=== PATIENT | male | born 1965 | race Caucasian/White ===

== ENCOUNTER 2017-02-06 13:59 | Emergency (ER) | payer BC ==
--- NOTE | 2017-03-12 15:38 | ER ---
ADMIT: 02/06/2017 RM/LOC: ER [facility] MR#: [id number] [address] [id number] GENEVIEVE DAWSON [address] [place] [address] Emergency Room Report SEX: M AGE: 51 : 1965 DATE: 02/06/2017 SUBJECTIVE: A 51-year-old male who has been feeling ill the past 4 to 5 days, had a productive cough, fever, chills, and some lightheadedness with activity. He is an otherwise healthy individual. See T-sheet for remainder of history and physical. EMERGENCY ROOM COURSE: CBC was within normal parameters. Electrolytes were significant for glucose of 157. UA was unremarkable. Chest x-ray revealed questionable infiltrate in the left lower lobe. The patient was being treated as pneumonia, given a prescription for levofloxacin. Instructed to follow up in 2 to 3 days if not better. Aniket Dawson MD/ yessi JOB #: [id number] CC: Jonh Peoples MD, Attending Physician Kyleigh Chapman MD, Family Physician
== END 2017-02-06 16:40 | disposition home or self-care (01) ==
LOC: ER 13:59
DX: J18.9 Pneumonia, unspecified organism (principal); Z79.899 Other long term (current) drug therapy